=== PATIENT | male | born 1950 | race Caucasian/White ===

== ENCOUNTER 2024-01-21 11:48 | Inpatient (IN) | payer MEDICARE, OTHER, SELFPAY ==
[2024-01-07 10:01] VITALS: BMI 33.6
[2024-01-17 18:20] VITALS: BP 172/88; PULSE 95; RESP 16; TEMP 36.7; O2SAT 95
[2024-01-21] VITALS (14 sets, daily range): BP systolic 126–161; BP diastolic 64–90; PULSE 77–95; RESP 12–20; TEMP 36.2–36.6; O2SAT 89–100; BMI 33.6; BMI 35.4
--- NOTE | 2024-01-21 | DI.RAD.S_ITS ---
PROCEDURE: XR LUMBAR SPINE 2-3V INDICATIONS: L5-S1 TLIF TECHNIQUE: 3 views of the lumbar spine were acquired. COMPARISON: [facility], , MR LUMBAR SPINE WITHOUT CONTRAST, 08/07/2023, 14:05. FINDINGS: L5-S1 posterior fusion with intervertebral spacer. Hardware appears intact. Mild anterolisthesis of L5 on S1. IMPRESSION: L5-S1 fusion with anterolisthesis of L5 on S1. Dictated by: Saida Dolan M.D. on 01/22/2024 at 11:19 Approved by: Saida Dolan M.D. on 01/22/2024 at 11:20
[2024-01-21] MEDS: ACETAMINOPHEN 325 MG TABLET 975 MG PO (12:17)
[2024-01-21] MEDS: GABAPENTIN 600 MG TABLET PO (12:18)
[2024-01-21] MEDS: LACTATED RINGERS 1,000 ML 42 ML IV ×2 (12:51→16:20)
--- NOTE | 2024-01-21 13:33 | PM.PREOP ---
Pre-operative Note Interval Note History & Physical reviewed/Exam performed by Physician: Yes Changes to H&P: No
[2024-01-21] MEDS: CEFAZOLIN 2 GM/100 ML PREMIX 100 ML IV ×2 (14:49→22:34)
[2024-01-21] MEDS: BUPIVACAINE 0.25% (PF) 60 ML, EPINEPHrine 0.15 MG INJ (15:04)
[2024-01-21] MEDS: BUPIVACAINE LIPOSOME 266 MG/20 ML VIAL INJ (15:04)
--- NOTE | 2024-01-21 15:09 | SUR.OPER ---
Prone on spine table, head in foam head support, padded chest and pelvic supports, gel pad at knees, lower legs supported by pillows; nipples, genitalia and toes free of pressure, arms secured on foam padded arm boards at <90 degrees abduction. Tape over blanket at thigh secured to table.
--- NOTE | 2024-01-21 17:36 | P.OP_ITS ---
Operative Date/Time/Diagnoses Date of procedure: 01/21/24 Time of procedure: 15:00 Pre-op diagnosis: 1. L5-S1 spondylolisthesis 2. L3-4, L5-S1 spinal stenosis 3. Lumbar epidural lipomatosis 4. Lumbar foramen stenosis. Post-op diagnosis: same Procedure & Clinicians Procedure: 1. L5-S1 Postero-lateral and posterior interbody fusion 2. L5-S1 interbody cage placement. 3. L5-S1 decompressive laminectomy with bilateral facetecomies 4. L5-S1 Posterior non-segmental instrumentation 5. L3-4 laminectomy with bilateral partial facetcomy 5. [place] of bone marrow from iliac crest 6. Utilization of microsurgical technique and operating microscope Same procedure as scheduled: Yes Indications: Patient has been having chronic back pain and worsening lumbar radiculopathy and symptoms of neurogenic claudication. Patient was found to have significant lumbar central and foraminal stenosis at L5-S1 with central stenosis at L3-4. Patient also was found to have significant anterolisthesis L5-S1. Pathologies are found to correlate with patient's symptoms and exam findings. Patient failed multiple conservative management with worsening pain weakness and numbness in his lower extremity. Patient has been having difficulty performing activity of daily living. After discussing risks benefits of treatment options, patient elected proceed with surgery. Surgeon: Maira Aldrich Command And Control Officer: Sada Danielle Click Yes if Unassisted: No Anesthesia Type: General Operative Notes Closure Type: primary Specimen(s): none sent Prosthetic devices, grafts, tissues, transplants, or devices: Globus revolve screws, Rise cage Estimated Blood Loss (mL): 100 Blood products transfused: none Procedure in detail: Patient was seen in the preoperative area. Risks and benefits of the surgery was discussed with the patient. Informed consent was obtained from the patient and placed in the chart. Surgical site was marked. Patient was taken to the operative room. General anesthesia was administered. Prophylactic antibiotic was given to the patient less than 30 min before the incision was made. Patient was placed into a prone position on the Florentino table. Patient's back was then prepped and draped in the sterile fashion. Time-out was performed at this time. Using AP and lateral C-arm imaging the interval between L5-S1 was identified and marked on patient's back. A 2 inch incision 2 in from midline was made on the right side first. The fascia was incised in line with skin incision. Globus MARS retractors was placed inside the incision and docked onto the L5 lamina. Using microsurgical technique and operating microscope, a 5 laminectomy and L5- S1 facetectomy was performed using a Kerrison rongeur. The laminectomy and facetectomy was performed in order to decompress patient's cauda equina as well as the nerve roots exiting at the L5-S1 level. The disc space at L5-S1 was identified. And a total diskectomy was performed at L5-S1 level. The endplates were decorticated using a rasp and shaver. The total diskectomy and decortication was performed at L5-S1 level in order to to accomplish a L5-S1 fusion. The local bone from the laminectomy and facetectomy was saved for local bone grafting. After the total diskectomy and decortication was completed, Globus viacell bone graft material was combined with local bone that was harvested earlier. At this time, a separate skin is incision was made over the iliac crest. A Jamshidi needle was inserted into the iliac crest through a separate skin incision. 5 cc of bone marrow aspiration was obtained through the separate skin incision using a Jamshidi needle from the iliac crest. The bone marrow aspiration was combined with local bone and the via cell bone grafting material. The bone grafting material was placed into the L5-S1 interbody space along with a expandable cage. The cage was expanded to its maximum height using the torque limiting screwdriver. The patient was found has significant amount of epidural lipomatosis in epidural space after the laminectomy. Additional is resection of the lipomas were performed for additional decompression of the epidural space. At this time the MARS retractor was redirected over the L3 lamina. Using microsurgical technique and operating microscope, a L3 laminectomy was performed using the Kerrison rongeur. The ligamentum flavum was also resected at the side of the laminectomy for further decompression of the epidural space. Partial facetectomies were performed bilaterally the further decompress the epidural space. At this time a mirror image incision was made on the left side. The fascia was incised in line with the skin incision. Globus MARS retractor was inserted and docked onto the L5-S1 posterolateral gutter. Using the power drill, posterior- lateral decortication was performed at L5-S1 level until bleeding cortical bone was identified. The remaining bone grafting material was placed into the L5-S1 posterior lateral gutter he order to accomplish posterolateral fusion at the L5- S1 level. Using the double C-arm technique, pedicle screws were placed into the L5 and S1 pedicles bilaterally. This was done by placing the Jamshidi needle into the pedicles, then placing the guidewires over the Jamshidi needle, and finally placing the cannulated screws over the guidewires bilaterally. After the pedicle screws were placed, 2 titanium rods was locked into the heads of the pedicle screws using locking caps and torque limiting screwdriver. After all the hardware was placed, and confirmed with AP and lateral C-arm imaging, the wound was then irrigated with sterile normal saline and packed with Ray-Trish gauze for 3 min to accomplish hemostasis. After the gauze was removed the deep fascia was closed with #1 Vicryl suture. The subcutaneous layer was closed with 2-0 Vicryl. The skin was closed with skin jonah. Patient tolerated the procedure well. There were no complications. Neuro monitoring was utilized throughout the entire procedure the signal was stable throughout entire procedure. The Operation could not have been safely performed without compromising the technical result or length of the procedure, without the assistance of a skilled surgical device sales representative. The surgical device sales representative was medically necessary for proper positioning, retraction and manipulation of instruments, proper exposure, surgical preparation, and manipulation of tissue. Complications: none Post-operative Condition: stable Disposition: PACU Plan for aftercare: Admit to inpatient hospital
[2024-01-21] MEDS: HYDROMORPHONE 1 MG INJ IV ×2 (17:48→17:57)
[2024-01-21] MEDS: ONDANSETRON 4 MG/2 ML INJ IV (17:48)
[2024-01-21] MEDS: hydrOXYzine 50 MG/ML INJ 25 MG IM (17:48)
[2024-01-21] MEDS: OXYCODONE IR 5 MG TABLET PO ×2 (17:49→22:34)
[2024-01-21] MEDS: LACTATED RINGERS 1,000 ML 125 ML IV ×2 (18:40→20:35)
--- NOTE | 2024-01-21 19:09 | PC.NURSE ---
Pt to room 217 via bed from PACU. Pt is drowsy but awakens to his name and answers appropriately. Spouse Samina is at the bedside. O2 93% on 3L via Simple face mask. Dsg to back is intact with small amount of shadow drainage barely visible. IVF infusing as ordered. SCD's on and running. Bed alarm on for safety. Pt remains sleepy so oriented Spouse to room, call light, bed controls, and tv controls. Pt agrees to call for assistance as needed and to not get up without help.
[2024-01-21] MEDS: IPRATROPIUM 0.5 MG/2.5 ML NEB INH ×2 (19:56→22:47)
[2024-01-21] MEDS: METOPROLOL IR 25 MG TABLET PO (20:34)
[2024-01-21] MEDS: GABAPENTIN 300 MG CAPSULE PO (20:34)
[2024-01-21] MEDS: DOCUSATE 100 MG CAPSULE PO (20:34)
[2024-01-21] MEDS: HYDROMORPHONE 0.5 MG INJ IV (20:34)
[2024-01-21] MEDS: SENNOSIDES 8.6 MG TABLET 17.2 MG PO (20:35)
[2024-01-21] MEDS: MELATONIN 3 MG TABLET 9 MG PO (20:35)
[2024-01-22] VITALS (8 sets, daily range): BP systolic 110–146; BP diastolic 60–75; PULSE 70–96; RESP 16–19; TEMP 36.3; O2SAT 90–96
[2024-01-22] MEDS: IPRATROPIUM 0.5 MG/2.5 ML NEB INH ×3 (07:20→15:35)
[2024-01-22] MEDS: CEFAZOLIN 2 GM/100 ML PREMIX 100 ML IV (07:56)
[2024-01-22] MEDS: DOCUSATE 100 MG CAPSULE PO (07:56)
[2024-01-22] MEDS: OXYCODONE IR 5 MG TABLET PO ×2 (07:57→12:47)
[2024-01-22] MEDS: METOPROLOL IR 25 MG TABLET PO (07:57)
[2024-01-22] MEDS: GABAPENTIN 300 MG CAPSULE PO ×2 (07:57→15:32)
[2024-01-22] MEDS: ATORVASTATIN 20 MG TABLET 10 MG PO (09:48)
[2024-01-22] MEDS: ENOXAPARIN 30 MG/0.3 ML SYRINGE SUBCUT (09:49)
[2024-01-22] MEDS: BUSPIRONE 5 MG TABLET PO (09:49)
[2024-01-22] MEDS: MESALAMINE 400 MG CAP.DRTAB. 2400 MG PO (09:50)
[2024-01-22] MEDS: FUROSEMIDE 20 MG TABLET PO (09:50)
--- NOTE | 2024-01-22 10:17 | CM.DANOTE ---
Pt is a 73yo male, resident of [place], is admitted s/p L5-S1 Spondylolisthesis. Pt lives in a house with his , Danielle and two cats, Ankur and Alexys. Pt's Primary Care Provider is Dr. Isreal Pleitez and insurance is Medicare. Reviewed chart and team rounds for pt's medical status and initial discharge needs. DCP met w/patient at bedside; introduced self and role. Pt was found in bed, alert and oriented, cooperative with assessment. Pt confirmed living situation and good support in . Pt expressed preference in returning home as soon as medically cleared. Pt agreeable to working with therapies and following their recommendations. Pt confirmed previous ortho surgeries and no history of SNF transfer. Pt open to home health referral if recommended by therapies. Plan: Awaiting PT/OT evaluations and recommendation for evolving discharge plans. Pt anticipating dc home. CM team will plan to follow clinical course closely for assessment of need and coordination of discharge plan. OLIVIA German Discharge Planning/Care Management CM Discharge Assessment Start: 01/22/24 10:13 Freq: Status: Active Protocol: Document 01/22/24 10:13 MW (Rec: 01/22/24 10:16 MW [id number]) Discharge Planning Assessment Assigned Cullet Washer IVAN Machado DPCRISTOPHER/Assigned Designee Name Burak Santos Contact Information [phone] Advance Directives? Yes Advance Directives on File No History Provided By Patient,Medical Record Expected Length of Stay 2 Has Patient been admitted in last 30 No days? Prior Living Arrangements House Household Members spouse,other Comment 2 cats, Alexys and Ankur Those are our kids. Type of transporation used prior to Drives own vehicle admit Independent with ADL's Yes Is patient alert and oriented? Yes Caregiver for Another No DME Already Rented / Owned FWW / Walker,Cane,Crutches Patient/Family Preference Home with Home Health Comment Patient reports he has no past history of transferring to a group home facility or utilizing home health agencies for any of his previous surgeries. Pt anticipates returning home and is open to HH referral if recommended by therapies. Barriers to Discharge No Discharge Plan Home Whiteboard Updated in Patient Room with Yes name and ext. # of Cullet Washer Comment [phone] Please Provide Date Initial DC 01/22/24 Assessment Was Performed Next Review Type Continued Stay Review
--- NOTE | 2024-01-22 10:21 | PM.PNPO.1 ---
Subjective Subjective Interval history: Randy is a pleasent 73 year old male who is POD#1 s/p L5-S1 Postero-lateral and posterior interbody fusion Denies fever, chills, chest pain, SOB, nausea, vomiting. Does admit to feelings of tingling in bilateral toes although gross sensation is intact, some of this was present prior to surgery but he feels it is slightly worse than prior. Exam Vital Signs (past 8 hours): - 01/22/24 03:12 01/22/24 03:17 01/22/24 07:20 Temperature Pulse Rate 96 H 78 Respiratory Rate 19 18 Blood Pressure 146/75 H Pulse Oximetry 93 93 95 Oxygen Delivery Method Nasal Cannula Nasal Cannula Oxygen Flow Rate 2 2 2 Fraction of Inspired Oxygen 28 01/22/24 08:34 Temperature 97.3 F L Pulse Rate 70 Respiratory Rate 16 Blood Pressure 110/60 Pulse Oximetry 96 Oxygen Delivery Method Oxygen Flow Rate 2 Fraction of Inspired Oxygen Fraction of Inspired Oxygen 28 SaO2/FiO2 Ratio 339 Oxygen Delivery Method Nasal Cannula Oxygen Flow Rate 2 Narrative Exam Narrative: Lying in bed comfortably during our interview today. SCDs are on and functioning. Extrem Other: 5/5 strength with DF, PF, EHL. Gross sensation to light touch intact throughout bilateral lower extremities although patient reports tingling sensation. [facility] Medical History (Updated 01/07/24 @ 10:58 by Lorena Cole RN) Concussion Anesthesia complication Kidney stones Infection of left ear (12/2023) Melanoma Hearing loss DVT (deep venous thrombosis) Diverticulitis COPD (chronic obstructive pulmonary disease) History of kidney stones Congenital kidney disease BCC (basal cell carcinoma) Arthritis Anxiety SVT (supraventricular tachycardia) Pulmonary emboli (03/2018) History of rectal bleeding History of emergence delirium HLD (hyperlipidemia) HTN (hypertension) Surgical History (Updated 01/07/24 @ 10:27 by Lorena Cole RN) S/P trigger finger release Hx of repair of right rotator cuff Hx of repair of left rotator cuff History of total left knee replacement (~2006) History of carpal tunnel surgery of right wrist (12/24/22) History of prosthetic unicompartmental arthroplasty of right knee (09/20/19) Hx of colonoscopy Hx of elbow surgery Hx of appendectomy Social History household members: spouse and other Smoking Status: Former smoker alcohol intake: current Assessment & Plan Post-op Postoperative Procedures: Procedures Operation Date: 01/21/24 13:45 Actual Procedure Side Surgeon p L5-S1 TRANSFORAMINAL LUMBAR INTERBODY FUSION WITH INSTRUMENTATION, L3-4 HEMILAMINECTOMY Maira Aldrich MD Quality VTE Deep Vein Thrombosis/Pulmonary Embolism Present on Admission: No
--- NOTE | 2024-01-22 11:59 | PT.IIE ---
Current Diagnoses Spondylolisthesis, lumbosacral region (01/21/24) Spinal stenosis, lumbar region with neurogenic claudication (01/21/24) Surgery Performed Operation Date: 01/21/24 13:45 Actual Procedures p L5-S1 TRANSFORAMINAL LUMBAR INTERBODY FUSION WITH INSTRUMENTATION, L3-4 HEMILAMINECTOMY - Maira Aldrich MD Surgical History (Last Updated 01/07/24 @ 10:27 by Lorena Cole, RN) History of carpal tunnel surgery of right wrist (12/24/22) History of prosthetic unicompartmental arthroplasty of right knee (09/20/19) History of total left knee replacement (~2006) Hx of appendectomy Hx of colonoscopy Hx of elbow surgery Hx of repair of left rotator cuff Hx of repair of right rotator cuff S/P trigger finger release Medical History (Last Updated 01/07/24 @ 10:58 by Lorena Cole, RN) Anesthesia complication Anxiety Arthritis BCC (basal cell carcinoma) Concussion Congenital kidney disease COPD (chronic obstructive pulmonary disease) Diverticulitis DVT (deep venous thrombosis) Hearing loss History of emergence delirium History of kidney stones History of rectal bleeding HLD (hyperlipidemia) HTN (hypertension) Infection of left ear (12/2023) Kidney stones Melanoma Pulmonary emboli (03/2018) SVT (supraventricular tachycardia) Physical Therapy Inpatient Evaluation/Re-Eval M1 PT/OT-IP Prior Functional Status Start: 01/22/24 11:32 Freq: NEEDED Status: Active Protocol: Document 01/22/24 11:00 MB (Rec: 01/22/24 11:59 MB [id number]) Medical Review Prior Functional Status Medical History Reviewed Yes Diet/Fluid Consistency Regular Communication WNLs Mobility and Gait I Activities of Daily Living and IADL's Pt states 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 Basement and pt does not have to go down to basement 4 wide steps with left rail ascend to enter Home Environment Walk in Shower,Built-In Shower Seat,Bidet Home Equipment Front Wheel Walker,Quad Cane, Crutches,Shower Seat with Backrest,Hand Held Shower M2 PT-IP Current Condition Start: 01/22/24 11:32 Freq: NEEDED Status: Active Protocol: Document 01/22/24 11:00 MB (Rec: 01/22/24 11:59 MB [id number]) Physical Therapy Current Condition Current Condition Evaluation Date 01/22/24 Treatment Diagnosis PLIF M3 PT-IP Subjective Start: 01/22/24 11:32 Freq: NEEDED Status: Active Protocol: Document 01/22/24 11:00 MB (Rec: 01/22/24 11:59 MB [id number]) Subjective Physical Therapy Visit Type Type Initial Evaluation Visit Start Time 11:00 Visit Stop Time 11:30 Number of EGG TESTER Visits 0 Physical Therapy Visit Comments Patient Comments Pt is pleasantly conversant and finishing up breathing treatment with RT upon arrival and sats are in the low 90s ib 2L after breathing treatment. Therapy Pain Assessment Pain When Pain Assessed At Rest Pain Present Pain Present Pain Reported Location back Intensity 1 Scale Used Numeric (0 - 10) M4 PT-IP Mobility and Gait Start: 01/22/24 11:32 Freq: NEEDED Status: Active Protocol: Document 01/22/24 11:00 MB (Rec: 01/22/24 11:59 MB [id number]) PT-Bed Mobility Assessment Rolling Type of Rolling Log Rolling,Roll to Right Level of Assist Standby Assistance Supine to Sit Supine to Sit Standby Assistance,1 Person Assistance,Head of Bed Elevated,Bedrails Scooting Scooting to Edge of Bed Standby Assistance PT-Transfer Assessment Sit to and From Stand Sit to and from Stand Contact Guard Assistance,1 Person Assistance,Use of Upper Extremities Equipment Transfer Assistive Device Gait Belt,Front Wheeled Walker Orthotic/Prosthetic Devices or Brace: No Transfers Transfer Destination Chair,Toilet Transfer Technique Ambulation with walker Transfer Ability Level of Assist Contact Guard Assistance,1 Person Assistance,Use of Upper Extremities Comments Mobility Comments PT manages lines as pt has O2 donned and PT needs to check O2 and BP with mobility. O2 sats remain in the low 90s on RA with activity and pt states that he is fine. Sats dropped momentarily with getting up to EOB to 89% and then recovered to 90-93%. BP and HR in LUE: 116/56, 78; sitting 114/67, 80; standing 124/77, 86. PT allows sitting rest break EOB before standing given occ cough and BETANCOURT and to check vitals. Pt uses toilet during PT, urination only, sitting. Gait Assessment Gait Gait Assistance Required: Standby Assistance,Contact Guard Assist Distance (Feet) 15 Able to Maintain Weight Bearing Status Yes During Gait Assistive Devices Assistive Device Gait Belt,Front Wheeled Walker Orthotic/Prosthetic Devices or Brace: No Gait Deviations General Gait Pattern Decreased Stride Length, Decreased Feet Clearance, Flexed Trunk Factors Limiting Gait Function Factors Limiting Gait Function Decreased Activity Tolerance Comments Gait Comments Pt's mobility is pretty good with RW today and PT keeps an eye on symptomology given O2 doffed and checks O2 sats when returning to chair. Pt gait trains 15'x2 today PT-Balance Assessment Sitting Balance and Reactions Static Sitting Balance Ability Good Dynamic Sitting Balance Ability Good Standing Balance and Reactions Static Standing Balance Ability Good Dynamic Standing Balance Ability Good Device Used RW M5 PT-IP Objective Assessments Start: 01/22/24 11:32 Freq: NEEDED Status: Active Protocol: Document 01/22/24 11:00 MB (Rec: 01/22/24 11:59 MB [id number]) Orientation Orientation/Cognition Level of Alertness Alert Orientation Name,Age,Birthday,Month,Date, Year,Day of Week,Place, Situation Language Function Ability No Deficits Noted Safety Awareness Understands Safety Issues Gross Range of Motion Upper Extremity ROM Impairments Defer to OT Lower Extremity ROM Assessment Within Functional Limits Strength Lower Extremity Strength Assessment Within Functional Limits M6 PT-IP Treatment Start: 01/22/24 11:32 Freq: NEEDED Status: Active Protocol: Document 01/22/24 11:00 MB (Rec: 01/22/24 11:59 MB [id number]) Physical Therapy Treatment Education Education Provided Precautions,Post-Op Packet, Safety Other Treatments Other Treatment Performed No BLT, log rolling ed and practice, toileting M7 PT-IP Assessment and Plan Start: 01/22/24 11:32 Freq: NEEDED Status: Active Protocol: Document 01/22/24 11:00 MB (Rec: 01/22/24 11:59 MB [id number]) PT Summary Assessment and Plan Potential Rehabilitation Potential Good Status of Condition at Evaluation Evolving Summary Impairments Pain,Bed Mobility,Transfers, Gait,Activity Tolerance Progress Towards Goals Progressing Toward Goals Assessment Summary Pt is a 73 y/o male POD1 PLIF. Upon arrival, he is finishing up breathing treatment with RT and his sats are 92-93% on 2L. Pt states that he feels well and his O2 sats remain 89 -93% on RA with mobility with only drop with getting up to EOB. Pt's pain is well-managed and mobility only limited d/t checking vitals today/BETANCOURT. BP is functional with mobility. Pt is mostly SBA to CGA level for bed mobility, transfers and gait in room. Goals Bed Mobility Goal Independent Transfer Goal Independent,Front Wheeled Walker Gait Goal Independent,Front Wheel Walker Gait Distance 100 Other Goals Pt will ascend and descend 4 steps with left rail ascend and no more than CGA to allow safe home entry. Progress LRAD as appropriate Days to Meet Goals 3 Frequency of Treatment Frequency Of Treatment Twice a Day Treatment Plan Physical Therapy Treatment Plan Bed Mobility Training,Transfer Training,Gait Training, Therapeutic Exercise,Balance Retraining,Post Op Education, Discharge Planning,Hot or Cold Pack,Neuromuscular Re-ed Precautions Lumbar Precautions Log Roll,No Twisting,Limit Bending,Gait Belt above Incisional Area Weight Bearing Status Weight Bearing Status Weight Bear as Tolerated Recommendations To Nursing Amount of Assist Needed 1 Person Assist Discharge Recommendations PT Discharge Recommendations Home with 24/03 Assist Available,Outpatient PT Transportation Needs at Discharge Private Vehicle
--- NOTE | 2024-01-22 12:46 | OT.IP.EVAL ---
Current Diagnoses Spondylolisthesis, lumbosacral region (01/21/24) Spinal stenosis, lumbar region with neurogenic claudication (01/21/24) Arthrodesis status (01/21/24) Surgery Performed Operation Date: 01/21/24 13:45 Actual Procedures p L5-S1 TRANSFORAMINAL LUMBAR INTERBODY FUSION WITH INSTRUMENTATION, L3-4 HEMILAMINECTOMY - Maira Aldrich MD Past Medical History (Last Updated 01/07/24 @ 10:58 by Lorena Cole RN) Anesthesia complication Anxiety Arthritis BCC (basal cell carcinoma) Concussion Congenital kidney disease COPD (chronic obstructive pulmonary disease) Diverticulitis DVT (deep venous thrombosis) Hearing loss History of emergence delirium History of kidney stones History of rectal bleeding HLD (hyperlipidemia) HTN (hypertension) Infection of left ear (12/2023) Kidney stones Melanoma Pulmonary emboli (03/2018) SVT (supraventricular tachycardia) Surgical History (Last Updated 01/07/24 @ 10:27 by Lorena Cole RN) History of carpal tunnel surgery of right wrist (12/24/22) History of prosthetic unicompartmental arthroplasty of right knee (09/20/19) History of total left knee replacement (~2006) Hx of appendectomy Hx of colonoscopy Hx of elbow surgery Hx of repair of left rotator cuff Hx of repair of right rotator cuff S/P trigger finger release Occupational Therapy Inpatient Evaluation/Re-Eval M1 PT/OT-IP Prior Functional Status Start: 01/22/24 13:28 Freq: NEEDED Status: Active Protocol: Document 01/22/24 12:26 [facility] (Rec: 01/22/24 14:12 [facility] [id number]) Medical Review Prior Functional Status Medical History Reviewed Yes Diet/Fluid Consistency Regular Communication WNLs Mobility and Gait I Activities of Daily Living and IADL's Pt states 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 Basement and pt does not have to go down to basement 3 wide steps with left rail ascend to enter Home Environment Walk in Shower,Built-In Shower Seat,Bidet Home Equipment Front Wheel Walker,Quad Cane, Crutches,Shower Seat with Backrest,Hand Held Shower, Optometric Technician Additional Social History Comment Pt states his may have to be in and out of the house as taking care of family matters and was wondering how long it would be until he was able to be independent. Suggested would be best to have someone there initially. Pt then though of a someone that could come and stay with him if his had to be gone. M2 OT-IP Current Condition Start: 01/22/24 13:28 Freq: Status: Active Protocol: Document 01/22/24 12:26 [facility] (Rec: 01/22/24 14:12 [facility] [id number]) Occupational Therapy Current Condition Current Condition Evaluation Date 01/22/24 Treatment Diagnosis S/P L5-S1 and L3-4 Laminectomy with Bilateral partial facetomy Diagnosis Onset Date 01/21/24 Post Operative Precautions Abdominal Surgery Precautions Log Roll,Lifting Restrictions, Gait Belt above Incisional Area Weight Bearing Status Weight Bearing Status Weight Bear as Tolerated M3 OT- IP Subjective and Pain Start: 01/22/24 13:28 Freq: Status: Active Protocol: Document 01/22/24 12:26 [facility] (Rec: 01/22/24 14:12 [facility] [id number]) OT- Subjective Occupational Therapy Visit Type Type Initial Evaluation Visit Start Time 12:46 Visit Stop Time 13:34 Occupational Therapy Visit Comments Patient Comments Pt agreed to get up with OT. Patient/Caregiver Goals TO go home. OT Pain Assessment Pain When Pain Assessed During Mobility Pain Present Pain Present Pain Reported Location back Intensity 4 Scale Used Numeric (0 - 10) M4 OT- IP ADL's Start: 01/22/24 13:28 Freq: Status: Active Protocol: Document 01/22/24 12:26 [facility] (Rec: 01/22/24 14:12 [facility] [id number]) OT AVA-Cnoh-Pvnooln General Evaluation Self-Feeding Ability Independent OT ADL-Grooming Comments OT Grooming Comments Pt states did prior. OT ADL-Oral Care Comments Oral Care Comments Pt states able to follow to spit into a cup to best follow his back precautions. OT ADL-Dressing General Eval Lower Body Dressing Ability Maximum Assistance Areas Needing Assistance Socks Comments OT Dressing Comments At this time best for pt to obtain a sock aid or have his asisst him. Able to write on his folder various LB dressing equipment and pt states to order on line. OT ADL-Toileting Comments OT Toileting Comments Pt states has a bidet at home. Encourage pt to take a urinal home. OT ADL-Bathing Comments OT Bathing Comments Suggested for pt to take a long thin towel to get between his legs to assist for pericare needs and also use the hand held shower spray to assist. Pt states his will be able to assist as well . Educated to cover the dressing for showering needs. M5 OT- IP IADL's Start: 01/22/24 13:28 Freq: Status: Active Protocol: Document 01/22/24 12:26 [facility] (Rec: 01/22/24 14:12 [facility] [id number]) OT-Instrumental Activities of Daily Living Deficits IADL Deficits Identified Deficits Home Safety Awareness Awareness of Need for Assistance at Home Good Awareness Ability to Problem Solve Emergency Able to Problem Solve Situations Medication Management Medication Management Comments Pt aware a little groggy and agreed to have his provide at least supervision. Money Management Money Management Comments Suggested to have someone assist as pt a little groggy at this time. Meal Preparation Meal Preparation Caregiver Provides Assist Wired Music Operator Wired Music Operator Caregiver Provides Assist M6 OT- IP Functional Cognition Start: 01/22/24 13:28 Freq: Status: Active Protocol: Document 01/22/24 12:26 [facility] (Rec: 01/22/24 14:12 [facility] [id number]) Cognitive Factors Limiting Selfcare Function Cognitive Ability Level of Alertness Alert Patient Orientation Name,Age,Birthday,Month,Date, Year,Day of Week,Place, Situation Attention Span Ability Capable of Focused Attention, Capable of Sustained Attention Ability to Follow Commands Able to Follow One Step Commands Memory Description No Deficits Noted Cognitive Comments Cognitive Assessment Comments Pt a bit talkative, a bit groggy , but able to follow commands for ADL and mobility needs. OT- Vision and Hearing OT- Hearing Assessment OT- Hearing Assessment Hearing Impaired OT- Vision Assessment Visual Acuity Glasses All The Time M7 OT- IP Mobility and Balance Start: 01/22/24 13:28 Freq: Status: Active Protocol: Document 01/22/24 12:26 [facility] (Rec: 01/22/24 14:12 [facility] [id number]) OT- Bed Mobility Assessment Supine to Sit Supine to Sit Assist Standby Assistance OT-Transfer Assessment Sit to and From Stand Sit to and from Stand Standby Assistance Transfers Transfer Ability Standby Assistance Technique Transfer Destination Bed,Chair Transfer Technique Stand Step Pivot Devices Transfer Assistive Devices Gait Belt,Front Wheeled Walker Comments Mobility Comments Educated to roll all the way over to side-lying so easier to get up in sitting. Pt states also has a recliner that he can sleep in if needed. CGA to close SBA to stand and then SBA with FWW. OT- Balance Assessment Sitting Balance and Reactions Static Sitting Balance Ability Normal Dynamic Sitting Balance Ability Good Standing Balance and Reactions Static Standing Balance Ability Good Dynamic Standing Balance Ability Good M8 OT- IP Objective Assessments Start: 01/22/24 13:28 Freq: Status: Active Protocol: Document 01/22/24 12:26 [facility] (Rec: 01/22/24 14:12 [facility] [id number]) OT Gross Range of Motion Upper Extremity Range of Motion Assessment Within Functional Limits OT Strength Comments Strength Comments WFL for needs for mobility. M9 OT- IP Assessment and Plan Start: 01/22/24 13:28 Freq: Status: Active Protocol: Document 01/22/24 12:26 [facility] (Rec: 01/22/24 14:12 [facility] [id number]) OT Summary Assessment and Plan Potential Rehabilitation Potential Excellent Analytic Complexity at Evaluation Low Summary OT Impairments Pain,Balance,Functional Mobility,Dressing,Toileting, Bathing,Toilet Transfers, Shower Transfers,Activity Tolerance Progress Towards Goals Progressing Toward Goals Assessment Summary Pt main barriers pain and steps. Pt still needing occasional vc to incorporate his back precautions for ADl and mobility needs. Able to suggested equipment needs for the pt/ Pt to go home with assist when medically stable. Goals Grooming Goal Independent Dressing Goal Independent,Long Handled Shoe Horn,Optometric Technician,Sock Aid Toileting Goal Independent Bathing Goal Standby Assistance Toilet Transfer Goal Independent Shower Transfer Goal Independent Days to Meet Goals 48 Frequency of Treatment Frequency Of Treatment Once a Day Treatment Plan OT Treatment Plan ADL Training,Functional Mobility,Patient/Family Education,Discharge Planning Discharge Recommendations OT Discharge Recommendations Home with Assistance Home Equipment Needs LB dressing equipmenet Transportation Needs at Discharge Private Vehicle
--- NOTE | 2024-01-22 15:00 | PT.IPTN ---
Current Diagnoses Spondylolisthesis, lumbosacral region (01/21/24) Spinal stenosis, lumbar region with neurogenic claudication (01/21/24) Arthrodesis status (01/21/24) Surgery Performed Operation Date: 01/21/24 13:45 Actual Procedures p L5-S1 TRANSFORAMINAL LUMBAR INTERBODY FUSION WITH INSTRUMENTATION, L3-4 HEMILAMINECTOMY - Maira Aldrich MD Physical Therapy Treatment Note M2 PT-IP Current Condition Start: 01/22/24 11:32 Freq: NEEDED Status: Active Protocol: Document 01/22/24 11:00 MB (Rec: 01/22/24 11:59 MB [id number]) Physical Therapy Current Condition Current Condition Evaluation Date 01/22/24 Treatment Diagnosis PLIF M3 PT-IP Subjective Start: 01/22/24 11:32 Freq: NEEDED Status: Active Protocol: Document 01/22/24 15:32 TS (Rec: 01/22/24 15:46 TS [id number]) Subjective Physical Therapy Visit Type Type Treatment Note Visit Start Time 15:00 Visit Stop Time 15:30 Number of CHIEF OPERATING ENGINEER Visits 1 Physical Therapy Visit Comments Patient Comments Pt found resting in bed, spouse in room, pt is agreeable to PT. Therapy Pain Assessment Pain When Pain Assessed At Rest Pain Present Pain Present Pain Reported M4 PT-IP Mobility and Gait Start: 01/22/24 11:32 Freq: NEEDED Status: Active Protocol: Document 01/22/24 15:32 TS (Rec: 01/22/24 15:46 TS [id number]) PT-Bed Mobility Assessment Rolling Type of Rolling Log Rolling,Roll to Right Level of Assist Standby Assistance Supine to Sit Supine to Sit Standby Assistance,1 Person Assistance,Head of Bed Elevated,Bedrails Sit to Supine Sit to Supine Minimal Assistance Scooting Scooting to Edge of Bed Standby Assistance PT-Transfer Assessment Sit to and From Stand Sit to and from Stand Standby Assistance Equipment Transfer Assistive Device Gait Belt,Front Wheeled Walker Orthotic/Prosthetic Devices or Brace: No Comments Mobility Comments Logroll to L side SBA with use of handrails. Supine to sit SBA with BUE support. Spouse donned belt prior to mobility. STS from bed SBA with FWW. Pt ambulated ~150' SBA with FWW. Pt performed x4 steps on step stool CGA with CAR RETARDER OPERATOR from spouse. Sit to supine into bed Jaycee for Le's from spouse. Pt was left in bed, ready to d /c. Gait Assessment Gait Gait Assistance Required: Standby Assistance Distance (Feet) 150 Able to Maintain Weight Bearing Status Yes During Gait Assistive Devices Assistive Device Gait Belt,Front Wheeled Walker Orthotic/Prosthetic Devices or Brace: No Gait Deviations General Gait Pattern Decreased Stride Length, Decreased Feet Clearance, Flexed Trunk Factors Limiting Gait Function Factors Limiting Gait Function Decreased Activity Tolerance Stair Climbing Assessment Evaluation Level of Assist On Stairs Contact Guard Assistance Devices Stair Climbing Assistive Devices Right Railing Technique/Endurance Stair Climbing Direction Ascend and Descend Stair Climbing Technique Step to Step Number of Steps Climbed 5 PT-Balance Assessment Sitting Balance and Reactions Static Sitting Balance Ability Normal Dynamic Sitting Balance Ability Good Standing Balance and Reactions Static Standing Balance Ability Good Dynamic Standing Balance Ability Good Device Used RW M5 PT-IP Objective Assessments Start: 01/22/24 11:32 Freq: NEEDED Status: Active Protocol: Document 01/22/24 11:00 MB (Rec: 01/22/24 11:59 MB [id number]) Orientation Orientation/Cognition Level of Alertness Alert Orientation Name,Age,Birthday,Month,Date, Year,Day of Week,Place, Situation Language Function Ability No Deficits Noted Safety Awareness Understands Safety Issues Gross Range of Motion Upper Extremity ROM Impairments Defer to OT Lower Extremity ROM Assessment Within Functional Limits Strength Lower Extremity Strength Assessment Within Functional Limits M6 PT-IP Treatment Start: 01/22/24 11:32 Freq: NEEDED Status: Active Protocol: Document 01/22/24 15:32 TS (Rec: 01/22/24 15:46 [id number]) Physical Therapy Treatment Education Education Provided Precautions,Post-Op Packet, Safety M7 PT-IP Assessment and Plan Start: 01/22/24 11:32 Freq: NEEDED Status: Active Protocol: Document 01/22/24 15:32 TS (Rec: 01/22/24 15:46 TS [id number]) PT Summary Assessment and Plan Potential Rehabilitation Potential Good Summary Impairments Pain,Bed Mobility,Transfers, Gait,Activity Tolerance Progress Towards Goals Progressing Toward Goals Assessment Summary Randy is making good progress with his mobility. He performed logroll and supine to sit SBA with good awareness of his spinal precautions. He progressed his ambulation to ~150'SBA with FWW, denied any lightheadedness. He performed steps x5 with CAR RETARDER OPERATOR and use of single rail. Spouse was instructed in and performed donning of gait belt, gait and stair training. PT is recommending pt return home with assist. Goals Bed Mobility Goal Independent Transfer Goal Independent,Front Wheeled Walker Gait Goal Independent,Front Wheel Walker Gait Distance 100 Other Goals Pt will ascend and descend 4 steps with left rail ascend and no more than CGA to allow safe home entry. Progress LRAD as appropriate Days to Meet Goals 3 Frequency of Treatment Frequency Of Treatment Twice a Day Treatment Plan Physical Therapy Treatment Plan Bed Mobility Training,Transfer Training,Gait Training, Therapeutic Exercise,Balance Retraining,Post Op Education, Discharge Planning,Hot or Cold Pack,Neuromuscular Re-ed Precautions Lumbar Precautions Log Roll,No Twisting,Limit Bending,Gait Belt above Incisional Area Weight Bearing Status Weight Bearing Status Weight Bear as Tolerated Recommendations To Nursing Amount of Assist Needed 1 Person Assist Discharge Recommendations PT Discharge Recommendations Home with Assistance, Outpatient PT Transportation Needs at Discharge Private Vehicle
--- NOTE | 2024-01-22 15:25 | P.DS_ITS ---
History of Present Illness History of Present Illness Chief complaint: INPT Narrative: Randy is a pleasant 73 year old male who is POD#1 s/p L5-S1 TLIF and L3-[address] Aldrich This morning he reports his pain is well controlled and he is hoping to be able to go home once he is able to adequately mobilize. Urinating well without issue in bedside urinal. Has not been up to walk with PT yet. Lives at home with was willing and able to aid in patient's postop recovery. He does have a history significant for 3-4 falls a year on average. His is coming to visit him later this afternoon and hopefully she can talk with PT/OT as well when they come to see patient. No specific complaints or concerns for me this morning. Denies fever, chills, chest pain, SOB, nausea, vomiting. Does admit to feelings of tingling in bilateral toes although gross sensation is intact, some of this was present prior to surgery but he feels it is slightly worse than prior. Operative Date/Time/Diagnoses Date of procedure: 01/21/24 Time of procedure: 15:00 Pre-op diagnosis: 1. L5-S1 spondylolisthesis 2. L3-4, L5-S1 spinal stenosis 3. Lumbar epidural lipomatosis 4. Lumbar foramen stenosis. Post-op diagnosis: same Procedure & Clinicians Procedure: 1. L5-S1 Postero-lateral and posterior interbody fusion 2. L5-S1 interbody cage placement. 3. L5-S1 decompressive laminectomy with bilateral facetecomies 4. L5-S1 Posterior non-segmental instrumentation 5. L3-4 laminectomy with bilateral partial facetcomy 5. [place] of bone marrow from iliac crest 6. Utilization of microsurgical technique and operating microscope Same procedure as scheduled: Yes Indications: Patient has been having chronic back pain and worsening lumbar radiculopathy and symptoms of neurogenic claudication. Patient was found to have significant lumbar central and foraminal stenosis at L5-S1 with central stenosis at L3-4. Patient also was found to have significant anterolisthesis L5-S1. Pathologies are found to correlate with patient's symptoms and exam findings. Patient failed multiple conservative management with worsening pain weakness and numbness in his lower extremity. Patient has been having difficulty performing activity of daily living. After discussing risks benefits of treatment options, patient elected proceed with surgery. Surgeon: Maira Aldrich Critical Care Nurse: Sada Danielle Click Yes if Unassisted: No Anesthesia Type: General Post-op diagnosis: same Discharge Providers Provider Date of admission: 01/21/24 11:48 Discharge Date: 01/22/24 Primary care physician: Isreal Pleitez DO Consults: 01/21/24 18:20 Consult to Occupational Therapy Evaluate & Treat Comment: Physician Instructions: Evaluate and treat Consult to Physical Therapy Evaluate & Treat Comment: Physician Instructions: Evaluate and Treat Discharge provider: Liza Dolan PA-C Summary Hospital Course Discharge Diagnosis: Stable status post L5-S1 TLIF, L3-4 hemilaminectomy Hospital Course: Uncomplicated hospital course Exam Vital Signs (past 8 hours): - 01/22/24 08:34 01/22/24 10:44 01/22/24 11:00 Temperature 97.3 F L Pulse Rate 70 77 Respiratory Rate 16 16 Blood Pressure 110/60 Pulse Oximetry 96 92 92 Oxygen Delivery Method Nasal Cannula Room Air Oxygen Flow Rate 2 01/22/24 15:00 Temperature Pulse Rate Respiratory Rate Blood Pressure Pulse Oximetry 92 Oxygen Delivery Method Room Air Oxygen Flow Rate Fraction of Inspired Oxygen 28 SaO2/FiO2 Ratio 339 Oxygen Delivery Method Room Air Oxygen Flow Rate 2 Narrative Exam Narrative: Sitting comfortably in bedside chair during our interview today, SCDs on and functioning. No acute distress. Resp Effort & Inspection: normal respiratory effort and able to speak in complete sentences Cardio Rate: regular rate Other: Brisk capillary refill. Skin Other: Postsurgical dressings are intact, clean and dry. Neuro General: patient alert, patient awake and patient oriented x3 Other: Gross sensation intact to light touch throughout bilateral lower extremities, reports a tingling sensation however. 5/5 strength with DF, PF, EHL bilaterally. Appropriate AROM of bilateral knees. Calf soft and compressible bilaterally. Psych Appearance: grossly normal Speech and Movement: speech and movement normal [facility] Medical History (Updated 01/07/24 @ 10:58 by Lorena Cole RN) Concussion Anesthesia complication Kidney stones Infection of left ear (12/2023) Melanoma Hearing loss DVT (deep venous thrombosis) Diverticulitis COPD (chronic obstructive pulmonary disease) History of kidney stones Congenital kidney disease BCC (basal cell carcinoma) Arthritis Anxiety SVT (supraventricular tachycardia) Pulmonary emboli (03/2018) History of rectal bleeding History of emergence delirium HLD (hyperlipidemia) HTN (hypertension) Surgical History (Updated 01/22/24 @ 14:12 by Sada Danielle PA-C) S/P trigger finger release Hx of repair of right rotator cuff Hx of repair of left rotator cuff History of total left knee replacement (~2006) History of carpal tunnel surgery of right wrist (12/24/22) History of prosthetic unicompartmental arthroplasty of right knee (09/20/19) Hx of colonoscopy Hx of elbow surgery Hx of appendectomy Social History household members: spouse and other Smoking Status: Former smoker alcohol intake: current Discharge Assessment & Plan Assessment and Plan Assessment: Stable s/p L5-S1 TLIF, L3-4 hemilaminectomy Plan of Treatment: 1) Plan to discharge to home today with . 2) continue multimodal pain management. Post-op pain medications were sent today to patients pharmacy. 3) May resume Eliquis the evening of 01/22. 4) no deep bending, twisting, prolonged sitting, lifting more than 10 lb. 5) keep dressing intact, clean, dry until 2 week postop appointment. No soaking the incision site in pools or tubs. No topical ointments or creams to the incision site. 5) Follow up at [facility] orthopedics in 2 weeks for a postop appointment and wound check. All patient's questions were answered and he is in agreement with the treatment plan. Call our office if any questions or concerns arise. Discharge Plan Discharge Plan Patient Disposition: Home Provider Discharge Comment: NO Eliquis today, 01/21. DO NOT restart Eliquis until evening dose on Friday, 01/22. Discharge orders & Medications Prescriptions: New docusate sodium 100 mg Capsule 100 mg PO BID PRN (Reason: constipation) Qty: 60 1RF oxycodone 5 mg Tablet 5 mg PO Q4-6H PRN (Reason: Pain, Moderate (4-6)) Qty: 60 0RF Continued atorvastatin 10 mg Tablet 10 mg PO DAILY hydrocodone-acetaminophen 5-325 mg Tablet 1 tab PO DAILY PRN (Reason: Pain) acetaminophen 500 mg Tablet 1,000 mg PO TID buspirone 10 mg Tablet 5 mg PO DAILY gabapentin 300 mg Capsule 300 mg PO TID furosemide 20 mg Tablet 20 mg PO DAILY cyclobenzaprine 5 mg Tablet 5 mg PO BEDTIME PRN (Reason: Muscle Spasm) metoprolol tartrate 25 mg Tablet 25 mg PO BID mesalamine 800 mg Tablet,Delayed Release (Dr/Ec) 1,600 mg PO BID Rx Instructions: must be taken on empty stomach; no food 1 hr after or 2-3 hrs before dose melatonin 10 mg Tablet 10 mg PO BEDTIME Eliquis 2.5 mg Tablet 2.5 mg PO BID Spiriva Respimat 2.5 mcg/actuation Mist 1 puff INHALATION DAILY Follow up/Referrals: Isreal Pleitez DO [Primary Care Provider] - Maira Aldrich MD [Physician] - 02/05/24 11:00 am (Follow up at [facility] office in [place].) Diet/Activity/Treatments Diet: Diet as Tolerated Activity: No deep bending or twisting at the waist. No lifting more than 10 pounds. Cold/Heat Therapy: Heating pad to low back as needed for pain. Skin/Wound/Dressing Care Report to your healthcare provider any signs of infection, such as:: chills, fever, night sweats, unusual drainage and unusual redness Dressing: May shower; keep dressing as dry as possible. If dressing becomes wet or dirty, may remove and replace with clean, dry gauze. No bathing or otherwise soaking incisions. Do not apply any creams, lotions, or ointments to incisions. Visit Report/Discharge Packet Instructions: DI for Prescription Opioid Use, DI for Transforaminal Lumbar Interbody Fusion Stand Alone Forms: Patient Portal/API, Stroke Signs & Symptoms, Surgery Discharge Discharge Data Primary Care Provider: Isreal Pleitez Quality VTE Deep Vein Thrombosis/Pulmonary Embolism Present on Admission: No
--- NOTE | 2024-01-22 15:37 | P.DS_ITS ---
History of Present Illness History of Present Illness Chief complaint: INPT Narrative: Randy is a pleasant 73 year old male who is POD#1 s/p L5-S1 TLIF and L3-[address] Aldrich This morning he reports his pain is well controlled and he is hoping to be able to go home once he is able to adequately mobilize. Urinating well without issue in bedside urinal. Has not been up to walk with PT yet. Lives at home with was willing and able to aid in patient's postop recovery. He does have a history significant for 3-4 falls a year on average. His is coming to visit him later this afternoon and hopefully she can talk with PT/OT as well when they come to see patient. No specific complaints or concerns for me this morning. Denies fever, chills, chest pain, SOB, nausea, vomiting. Does admit to feelings of tingling in bilateral toes although gross sensation is intact, some of this was present prior to surgery but he feels it is slightly worse than prior. Operative Date/Time/Diagnoses Date of procedure: 01/21/24 Time of procedure: 15:00 Pre-op diagnosis: 1. L5-S1 spondylolisthesis 2. L3-4, L5-S1 spinal stenosis 3. Lumbar epidural lipomatosis 4. Lumbar foramen stenosis. Post-op diagnosis: same Procedure & Clinicians Procedure: 1. L5-S1 Postero-lateral and posterior interbody fusion 2. L5-S1 interbody cage placement. 3. L5-S1 decompressive laminectomy with bilateral facetecomies 4. L5-S1 Posterior non-segmental instrumentation 5. L3-4 laminectomy with bilateral partial facetcomy 5. [place] of bone marrow from iliac crest 6. Utilization of microsurgical technique and operating microscope Same procedure as scheduled: Yes Indications: Patient has been having chronic back pain and worsening lumbar radiculopathy and symptoms of neurogenic claudication. Patient was found to have significant lumbar central and foraminal stenosis at L5-S1 with central stenosis at L3-4. Patient also was found to have significant anterolisthesis L5-S1. Pathologies are found to correlate with patient's symptoms and exam findings. Patient failed multiple conservative management with worsening pain weakness and numbness in his lower extremity. Patient has been having difficulty performing activity of daily living. After discussing risks benefits of treatment options, patient elected proceed with surgery. Surgeon: Maira Aldrich Senior Housekeeper: Sada Danielle Click Yes if Unassisted: No Anesthesia Type: General Post-op diagnosis: same Discharge Providers Provider Date of admission: 01/21/24 11:48 Discharge Date: 01/22/24 Primary care physician: Isreal Pleitez DO Consults: 01/21/24 18:20 Consult to Occupational Therapy Evaluate & Treat Comment: Physician Instructions: Evaluate and treat Consult to Physical Therapy Evaluate & Treat Comment: Physician Instructions: Evaluate and Treat Discharge provider: Liza Dolan PA-C Exam Vital Signs (past 8 hours): - 01/22/24 08:34 01/22/24 10:44 01/22/24 11:00 Temperature 97.3 F L Pulse Rate 70 77 Respiratory Rate 16 16 Blood Pressure 110/60 Pulse Oximetry 96 92 92 Oxygen Delivery Method Nasal Cannula Room Air Oxygen Flow Rate 2 01/22/24 15:00 Temperature Pulse Rate Respiratory Rate Blood Pressure Pulse Oximetry 92 Oxygen Delivery Method Room Air Oxygen Flow Rate Fraction of Inspired Oxygen 28 SaO2/FiO2 Ratio 339 Oxygen Delivery Method Room Air Oxygen Flow Rate 2 [facility] Medical History (Updated 01/07/24 @ 10:58 by Lorena Cole RN) Concussion Anesthesia complication Kidney stones Infection of left ear (12/2023) Melanoma Hearing loss DVT (deep venous thrombosis) Diverticulitis COPD (chronic obstructive pulmonary disease) History of kidney stones Congenital kidney disease BCC (basal cell carcinoma) Arthritis Anxiety SVT (supraventricular tachycardia) Pulmonary emboli (03/2018) History of rectal bleeding History of emergence delirium HLD (hyperlipidemia) HTN (hypertension) Surgical History (Updated 01/22/24 @ 14:12 by Sada Danielle PA-C) S/P trigger finger release Hx of repair of right rotator cuff Hx of repair of left rotator cuff History of total left knee replacement (~2006) History of carpal tunnel surgery of right wrist (12/24/22) History of prosthetic unicompartmental arthroplasty of right knee (09/20/19) Hx of colonoscopy Hx of elbow surgery Hx of appendectomy Social History household members: spouse and other Smoking Status: Former smoker alcohol intake: current Discharge Assessment & Plan Assessment and Plan Assessment: Stable s/p L5-S1 TLIF, L3-4 hemilaminectomy Plan of Treatment: 1) Plan to discharge to home today with pending adequate mobilization with PT. 2) continue multimodal pain management. Post-op pain medications were sent today to patients pharmacy. 3) May resume Eliquis the evening of 01/22. 4) no deep bending, twisting, prolonged sitting, lifting more than 10 lb. 5) keep dressing intact, clean, dry until 2 week postop appointment. No soaking the incision site in pools or tubs. No topical ointments or creams to the incision site. 5) Follow up at [facility] [place] in 2 weeks for a postop appointment and wound check. All patient's questions were answered and he is in agreement with the treatment plan. Call our office if any questions or concerns arise. Discharge Plan Discharge Plan Patient Disposition: Home Provider Discharge Comment: NO Eliquis today, 01/21. DO NOT restart Eliquis until evening dose on Friday, 01/22. Discharge orders & Medications Prescriptions: New docusate sodium 100 mg Capsule 100 mg PO BID PRN (Reason: constipation) Qty: 60 1RF oxycodone 5 mg Tablet 5 mg PO Q4-6H PRN (Reason: Pain, Moderate (4-6)) Qty: 60 0RF Continued atorvastatin 10 mg Tablet 10 mg PO DAILY hydrocodone-acetaminophen 5-325 mg Tablet 1 tab PO DAILY PRN (Reason: Pain) acetaminophen 500 mg Tablet 1,000 mg PO TID buspirone 10 mg Tablet 5 mg PO DAILY gabapentin 300 mg Capsule 300 mg PO TID furosemide 20 mg Tablet 20 mg PO DAILY cyclobenzaprine 5 mg Tablet 5 mg PO BEDTIME PRN (Reason: Muscle Spasm) metoprolol tartrate 25 mg Tablet 25 mg PO BID mesalamine 800 mg Tablet,Delayed Release (Dr/Ec) 1,600 mg PO BID Rx Instructions: must be taken on empty stomach; no food 1 hr after or 2-3 hrs before dose melatonin 10 mg Tablet 10 mg PO BEDTIME Eliquis 2.5 mg Tablet 2.5 mg PO BID Spiriva Respimat 2.5 mcg/actuation Mist 1 puff INHALATION DAILY Follow up/Referrals: Isreal Pleitez DO [Primary Care Provider] - Maira Aldrich MD [Physician] - 02/05/24 11:00 am (Follow up at [facility] office in [place].) Diet/Activity/Treatments Diet: Diet as Tolerated Activity: No deep bending or twisting at the waist. No lifting more than 10 pounds. Cold/Heat Therapy: Heating pad to low back as needed for pain. Skin/Wound/Dressing Care Report to your healthcare provider any signs of infection, such as:: chills, fever, night sweats, unusual drainage and unusual redness Dressing: May shower; keep dressing as dry as possible. If dressing becomes wet or dirty, may remove and replace with clean, dry gauze. No bathing or otherwise soaking incisions. Do not apply any creams, lotions, or ointments to incisions. Visit Report/Discharge Packet Instructions: DI for Prescription Opioid Use, Oxycodone, DI for Transforaminal Lumbar Interbody Fusion Stand Alone Forms: Patient Portal/API, Stroke Signs & Symptoms, Surgery Discharge Discharge Data Primary Care Provider: Isreal Pleitez Quality VTE Deep Vein Thrombosis/Pulmonary Embolism Present on Admission: No
== END 2024-01-22 16:30 | disposition home or self-care (01) | DRG 455 ==
PROVIDERS: Admitting Provider Orthopaedic Surgery Orthopaedic Surgery of the Spine; PCP Family Medicine Adult Medicine; Referring Provider Orthopaedic Surgery Orthopaedic Surgery of the Spine; Visit Provider Orthopaedic Surgery Orthopaedic Surgery of the Spine
PROC: 0SG30AJ Fusion of Lumbosacral Joint with Interbody Fusion Device, Posterior Approach, Anterior Column, Open Approach (ICD-10-PCS; principal; 2024-01-21 13:45)
DX: M43.17 Spondylolisthesis, lumbosacral region (principal); M48.062 Spinal stenosis, lumbar region with neurogenic claudication; M48.07 Spinal stenosis, lumbosacral region; E88.2 Lipomatosis, not elsewhere classified; E78.5 Hyperlipidemia, unspecified; I10 Essential (primary) hypertension; J44.9 Chronic obstructive pulmonary disease, unspecified; F41.9 Anxiety disorder, unspecified; Z86.711 Personal history of pulmonary embolism; Z79.01 Long term (current) use of anticoagulants; Z87.891 Personal history of nicotine dependence
CPT/HCPCS: 72100; 76000; 94640; 94667; 94760; 97116; 97161; 97165; 97530; 97535; C1713; C1821; C9290; J0171; J0330; J0690; J1100; J1170; J1650; J2250; J2405; J2704; J3010; J3410